=== PATIENT | female | born 1940 | race Caucasian/White ===

== ENCOUNTER 2025-01-05 13:06 | Emergency (ER) | payer MEDICARE, SELFPAY ==
[2025-01-05 13:18] VITALS: BP 154/80
--- NOTE | 2025-01-05 14:00 | ED.GENMED ---
History of Present Illness
General
Chief Complaint: Fall
Time Seen by Provider: 01/05/25 14:00
History of Present Illness
History of Present Illness:
TIME OF INITIAL EVALUATION
- 2 PM
REVIEW OF OLD RECORDS
- The patient has history of Parkinson's and asthma. No old records available for review in [facility].
Note:
CHIEF COMPLAINT(S)
Headache following a fall.
HISTORY OF PRESENT ILLNESS
The patient is an 84-year-old female who presented after experiencing a fall at her home. The incident occurred when she got out of bed due to feeling cold from the air conditioning and tripped when she turned too quickly, resulting in a loss of
balance. The fall occurred the previous night, making it over 12 hours since the event at the time of evaluation. She reports a throbbing headache. A computed tomography (CT) scan of the brain has been ordered but not yet completed. The patient
denies any acute neck pain, attributing any discomfort to existing arthritis. She noted bruising and swelling, particularly around the fourth digit of the left hand, which is tender at the middle phalanx, though no severe circulation issues were
seen with the rings despite some joint swelling. There is soreness at the nasal area with mild tenderness. The plan is to perform a CT scan of the brain, along with X-rays of the nasal bones and the fourth digit on the left hand.
CHRONIC MEDICAL CONDITIONS SIGNIFICANTLY AFFECTING CARE
The patient reports having arthritis with no new severe exacerbation related to the current injury.
PHYSICAL EXAM
General: Alert, no acute distress.
Skin: Warm, dry, with observed bruising on the fingers at fourth digit on left hand.
Neck: Supple, no acute pain upon palpation, she reports some chronic pain attributed to arthritis (no worsening pain), no midline C-spine tenderness.
Cardiovascular: Normal peripheral perfusion, no edema.
Respiratory: Respirations are non-labored.
Gastrointestinal: Abdomen nondistended.
Musculoskeletal: Tenderness at the left fourth digit, primarily at the middle phalanx; of note there is no significant tenderness at the proximal phalanx under the very loose ring, otherwise, normal range of motion and strength.
Neurological: Alert and oriented to person, place, time, and situation, no focal neurological deficit observed.
Psychiatric: Cooperative, appropriate mood and affect.
PROBLEM LIST
Acute: Headache post-fall, Fourth digit tenderness and swelling, Nasal tenderness
Chronic: Arthritis
PLAN
- Conduct CT scan of the brain to rule out any internal injury or bleeding.
- Obtain X-rays of the nasal bones and the fourth digit on the left hand to assess for fracture.
- Advise on maintaining the elevation of the arm to manage swelling and consider a splint for the fourth digit to promote healing, regardless of fracture status.
DIFFERENTIAL DIAGNOSIS
The Differential Diagnosis includes, in no particular order and is not limited to:
1. Cerebral contusion
2. Intracranial hemorrhage
3. Subdural hematoma
4. Nasal fracture
5. Phalangeal fracture
6. Arthritis exacerbation
7. Soft tissue injury
8. Concussion
9. Sinusitis
10. Hypertensive headache
RADIOLOGY
- CT head has been ordered from triage.
- X-ray suggest the possibility of distal phalanx fracture however the tenderness is more at the PIP/middle phalanx regardless will place in a splint
EKG
- Not indicated
LABS
- Not indicated
UPDATE
- I did offer and consider removing the ring using the ring cutter. I was unable to remove the ring with lubrication. Of note, the ring at the base of the fourth digit is very loose therefore I have very low suspicion that this will lead to any
vascular compromise in the future. I am unable to pass the ring over the left fourth PIP joint due to severe arthritic changes.
SUMMARY OF ENCOUNTER
The patient, an 84-year-old female, presented to the emergency department with a headache following a fall. Imaging was conducted to assess for potential injuries. A CT scan of the brain showed no evidence of bleeding, indicating no major internal
injuries. An X-ray indicated severe arthritis, and although a fracture at the distal area was suspected, it was determined unlikely, as it did not correlate with the area of tenderness. The swelling around the fourth digit was addressed, with
recommendations for elevation and possible splinting. Nasal contusion was noted, but no fractures were detected.
ASSESSMENT
1. No intracranial bleeding or fractures detected on imaging.
2. Severe arthritis noted on X-ray.
3. Fourth digit swelling with possible soft tissue injury but no definitive fracture.
4. Nasal contusion with no fracture.
PLAN
- Apply a splint to the fourth digit for support despite the lack of a definitive fracture.
- Elevate and possibly ice the affected finger to manage swelling.
- Monitor the fit of a loose ring on the swollen finger; plan to return if swelling compromises circulation for potential ring removal.
- Follow-up with an orthopedic surgeon for further evaluation and management of the finger and overall arthritis.
INDEPENDENT REVIEW OF LABS AND INTERPRETATION OF TESTS
- My independent interpretation of the CT scan shows no intracranial bleeding.
- My independent interpretation of the finger X-ray reveals severe arthritis, with a potential distal fracture suspected by the radiologist but considered unlikely based on clinical correlation.
- My independent interpretation of the nasal X-ray shows no fracture, only contusions.
PATIENT EDUCATION AND COUNSELING
Discussed the findings of the imaging with the patient, emphasizing no fractures or bleeding present. Advised on proper care regarding elevating and icing the affected digit, and on monitoring ring fit due to swelling. Informed the patient of the
lack of need for surgical intervention and provided the name of an orthopedic doctor for follow-up.
FOLLOW-UP INSTRUCTIONS
Follow up with an orthopedic surgeon for further evaluation and management.
MEDICAL DECISION MAKING
1. Number and Complexity of Problems Addressed:
Chronic conditions affecting care: Arthritis
Differential Diagnosis: Cerebral contusion, Intracranial hemorrhage, Subdural hematoma, Nasal fracture, Phalangeal fracture, Arthritis exacerbation, Soft tissue injury, Concussion, Sinusitis, Hypertensive headache
2. Data:
Category 1
- Tests ordered: CT scan of the brain, X-rays of nasal bones, and the fourth digit.
- My independent interpretation of the CT scan, finger X-ray, and nasal X-ray.
3. Risk:
Consideration of Admission/Observation: Escalation of care including admission/observation was considered given the complexity and risk of the patients presenting complaint, exam findings, and/or their underlying comorbidities. However, ultimately I
feel the patient is safe for outpatient management with close follow-up. Reasoning: Work-up is reassuring and does not reveal any acute life/organ threatening processes, the patients symptoms are well controlled upon reevaluation, reexamination is
reassuring, vitals are stable, the patient is agreeable with discharge, and reliable for follow-up.
DIAGNOSIS
- Headache post-fall (ICD-10: R51)
- Nasal contusion without fracture (ICD-10: S00.32XA)
- Osteoarthritis (ICD-10: M15.9)
Still no significant swelling under the ring with lots of room�we will hold off on removing the ring at this time
Phy Exam
Physical Exam
Physical Exam:
See HPI
Course
Orders/Labs/Results
Orders:
Orders
01/05/25 13:[address] [CT Head W/o Iv Contrast] Urgent
Comment:
Reason For Exam: fall
01/05/25 14:11
CR Hand - Left Min 3 Views Urgent
Reason For Exam: 4rth digit; unable to remove ring over PIP; loose
CR Nasal Bones Comp Min 3 View Urgent
Comment:
Reason For Exam: trauma
01/05/25 15:07
Aluminium Finger Splint Left ONCE
01/05/25 15:23
Acetaminophen [Tylenol] 1,000 mg .ROUTE .STK-MED ONE
01/05/25 15:26
Acetaminophen [Tylenol] 1,000 mg PO NOW STA
Vital Signs
Initial and Last Documented VS:
Initial Vital Signs
Temp Pulse Resp BP Pulse Ox
36.7 C 64 18 154/80 97
01/05/25 13:18 01/05/25 13:18 01/05/25 13:18 01/05/25 13:18 01/05/25 13:18
Last Documented Vital Signs
Temp Pulse Resp BP Pulse Ox
36.7 C 59 18 148/84 97
01/05/25 13:18 01/05/25 15:00 01/05/25 15:00 01/05/25 15:00 01/05/25 15:00
*Pulse Oximetry
SaO2: 97
Oxygen Mode of Delivery: Room air
Patient hypoxic: no
*Critical Care Note
Total Time (30-74mins, 75-104mins- exclusive of procedures): Not Applicable
ED Attending Note
-
Portions of this chart may have been created with voice recognition software.� Occasional wrong word or��sound alike� substitutions may have occurred due to the inherent limitations of voice recognition software.
Discharge Plan
Departure
Patient Disposition: Home (Routine Discharge)
Date of Disposition: 01/05/25
Time of Disposition: 16:59
Patient with high blood pressure during this ER visit?: Yes
Discharge Problem:
Fall, Contusion of face
Instructions: Head Injury in Adults (DC), BLOOD PRESSURE
Referrals:
César Cannon MD [Active, Orthopedics]
Anali Valadez MD [Family Provider, Internal Medicine]
Activity Restrictions/Additional Instructions:
The CAT scan of the brain shows no bleeding. The x-ray of the finger suggested the possibility of a fracture at the far down end of the finger but not necessarily where you are tender so I am not so sure that you truly have a finger fracture.
Regardless, we have placed you in a splint. I am given you the contact information for a local orthopedist to follow-up with. Return here immediately if the ring becomes tight around the finger, currently there is a lot of space in between the
skin and the ring itself. There is no sign of nasal bone fracture.
Interventions
Interventions:
*Risk Screen - Suicide Last Done: 01/05/25 13:18
*General Assessment Last Done: 01/05/25 13:18
*Neglect/Abuse Screening Last Done: 01/05/25 13:18
*ED- Fall Risk Assessment Last Done: 01/05/25 14:27
*ED COVID-19 Vaccine History Last Done: 01/05/25 14:27
ED-Musculoskeletal Assessment Last Done: 01/05/25 14:30
ED- Neurological Assessment Last Done: 01/05/25 14:27
ED-Skin Assessment Last Done: 01/05/25 14:27
Discharge Date and Time
Print Language: [id number]
[2025-01-05 14:27] VITALS: BMI 23.4
[2025-01-05 15:00] VITALS: BP 148/84
[2025-01-05] MEDS: TYLENOL 1000 MG PO (15:26)
== END 2025-01-05 17:05 | disposition home or self-care (01) ==
LOC: EMR 13:06
PROVIDERS: EMERGENCY PHYSICIAN Emergency Medicine; FAMILY PHYSICIAN Internal Medicine Geriatric Medicine
DX: S00.83XA Contusion of other part of head, initial encounter (principal); S60.222A Contusion of left hand, initial encounter; S00.33XA Contusion of nose, initial encounter; W19.XXXA Unspecified fall, initial encounter; G20.A1 Parkinson's disease without dyskinesia, without mention of fluctuations; J45.909 Unspecified asthma, uncomplicated; M19.90 Unspecified osteoarthritis, unspecified site
CPT/HCPCS: 99284; 70160; 70450; 73130